=== PATIENT | male | born 1975 | race Caucasian/White ===

== ENCOUNTER 2017-04-27 15:57 | Emergency (ER) | payer SELFPAY ==
[2017-04-27 22:21] VITALS: BP 123/97
== END 2017-04-27 22:00 | disposition home or self-care (01) ==
LOC: ED 15:57
DX: S42.191A Fracture of other part of scapula, right shoulder, initial encounter for closed fracture (principal); S32.029A Unspecified fracture of second lumbar vertebra, initial encounter for closed fracture; S31.010A Laceration without foreign body of lower back and pelvis without penetration into retroperitoneum, initial encounter; W14.XXXA Fall from tree, initial encounter; Y93.89 Activity, other specified; Y99.8 Other external cause status; Y92.89 Other specified places as the place of occurrence of the external cause
CPT/HCPCS: 90715; J1170; J2001; J2405; J3010; J7030; Q9967